=== PATIENT | male | born 1995 | race Caucasian/White ===

== ENCOUNTER 2019-07-30 08:01 | Emergency (ER) | payer OTHER, SELFPAY ==
[2019-07-30 08:05] VITALS: BP 122/82; PULSE 113; RESP 19; TEMP 36.8; O2SAT 96
--- NOTE | 2019-07-30 08:13 | ED_ITS ---
I attest that this documentation has been prepared under the direction and in the presence of Nataly Werner MD. Augusto Blount [email or web address] 07/30/19;08:19 HPI - General Adult General Chief complaint: GI Bleed Stated complaint: vomiting blood Time Seen by Provider: 07/30/19 08:07 Source: patient Mode of arrival: ambulatory Limitations: no limitations History of Present Illness HPI narrative: A 24 y/o male pt presents to the ED with c/o blood in his emesis and stool that began on Tuesday (07/28/2019). Pt states that his Sx began with formed, hematochezia and dark, red, emesis and his symptoms have since worsened. Pt reports that his last emesis was yesterday and was bright red. He also notes that yesterday he felt very fatigued and had a tightness in his upper, middle, abdomen, but that has subsided. He reports having a FRANCO and feeling dehydrated today, but denies any ABD pain, N/V/D, or dysuria. Pt notes having increased fluid intake. last tuesday w bright tight abd pain yesterday threw up dark brown yesterday when turning tire he felt weird all his energy was gone took 4 full liquid vomits very dark bright red stool bright red vomit yesterday very dehydrated with headache today only headache and no abd pain today no n/v/d today drank 7 glasses of water yesterday urinating ok pnemonia in 7th grade no other PMHX tonsillectomy smoke 10-12 cigs a day alcohol use 4 shots through the week started a day after he last drink no pcp tachy but reg lungs clear lung sounds bilateral bowel sounds normal epighastric tenderness no drug use no external hemoroids no internal hemoroids Onset (ago): day(s) (2) Related Data Home Medications Medication Instructions Recorded Confirmed No Home Medications 07/30/19 07/30/19 Allergies Allergy/AdvReac Type Severity Reaction Status Date / Time No Known Allergies Allergy Verified 07/30/19 08:10 COUNT INCLUDES THE [facility] Social History Social History Gender identity (if verbalized by the patient): Male Course Vital Signs Vital signs: Vital Signs Temperature 98.3 F 07/30/19 08:05 Pulse Rate 113 H 07/30/19 08:05 Respiratory Rate 19 20 08:05 Blood Pressure 122/82 07/30/19 08:05 Pulse Oximetry 96 07/30/19 08:05 Temperature 98.3 F 07/30/19 08:05 Pulse Rate 113 H 07/30/19 08:05 Respiratory Rate 07/30/19 08:05 Blood Pressure 122/82 07/30/19 08:05 Pulse Oximetry 96 07/30/19 08:05 Medical Decision Making Vital Signs Vital Signs: Vital Signs Temperature 98.3 F 07/30/19 08:05 Pulse Rate 113 H 07/30/19 08:05 Respiratory Rate 07/30/19 08:05 Blood Pressure 122/82 07/30/19 08:05 Pulse Oximetry 96 07/30/19 08:05 Temperature 98.3 F 07/30/19 08:05 Pulse Rate 113 H 07/30/19 08:05 Respiratory Rate 07/30/19 08:05 Blood Pressure 122/82 07/30/19 08:05 Pulse Oximetry 96 07/30/19 08:05 Discharge Plan Discharge Prescriptions: No Action No Home Medications RF: 0
[2019-07-30] MEDS: LACTATED RINGERS 1,000 ML 999 ML IV CONT (09:05)
[2019-07-30 09:09] VITALS: BP 104/68; BP 110/77; PULSE 103; PULSE 81
[2019-07-30 09:12] VITALS: BP 104/69; PULSE 118
[2019-07-30 09:17] VITALS: BP 104/69; PULSE 92; RESP 20; O2SAT 98
[2019-07-30 09:28] LABS: Basophils Percent Auto 0.5 % (0.2-1.2); Eosinophils Absolute Auto 0.1 K/mm3 (0-0.3); Eosinophils Percent Auto 1.7 % (0-4.4); Hematocrit 47.8 % (42.0-52.0); Hemoglobin 16.4 g/dL (14.0-18.0); Immature Granulocyte Absolute 0.03 K/mm3 (0.00-0.031); Immature Granulocyte Percent A 0.4 % (0-0.5); Lymphocytes Absolute Auto 0.84 K/mm3 (0.9-3.2); Lymphocytes Percent Auto 11.1 % (18.3-44.2); Mean Corpuscular HGB Conc 34.3 g/dl (32-36); Mean Corpuscular Hemoglobin 30.1 pg (26-34); Mean Corpuscular Volume 87.9 fl (80-100); Mean Platelet Volume 11.2 fl (7.4-10.4); Monocytes Absolute Auto 0.6 K/mm3 (0.1-0.6); Monocytes Percent Auto 8.5 % (2.6-8.5); Neutrophils Absolute Auto 5.9 K/mm3 (1.3-6.7); Neutrophils Percent Auto 77.8 % (45.5-73.1); Platelet Count Result 175 k/mm3 (150-375); Red Blood Count 5.44 M/mm3 (4.6-6.20); Red Cell Distribution Width 12.2 % (11.5-14.5); White Blood Count 7.5 K/mm3 (4.5-10.0)
--- NOTE | 2019-07-30 09:28 | ED.GIBLEED ---
HPI - GI Bleed General Chief complaint: GI Bleed Stated complaint: vomiting blood Time Seen by Provider: 07/30/19 08:07 Source: patient Mode of arrival: ambulatory Limitations: no limitations History of Present Illness HPI Narrative: A 24 y/o male pt presents to the ED, with c/o blood in his emesis and stool that began on Tuesday (07/28/2019), one day after his last alcohol intake. Pt states that his Sx began with formed, hematochezia and dark, red, emesis and his symptoms have since worsened. Pt reports that his last emesis was yesterday and describes it as being bright red. He also notes that yesterday he felt very fatigued and had a tightness in his upper, middle, abdomen, but that has subsided. He reports having a FRANCO and feeling dehydrated today, but denies currently having any ABD pain, N/V/D, or dysuria. Pt notes having increased fluid intake and has been able to keep this down. MD complaint: blood streaked emesis, coffee ground emesis and blood streaked stool Onset (ago): day(s) (2) Associated symptoms: abdominal pain (middle, upper, tightness ), vomiting, headaches and other (diarrhea, fatigue) Treatments Prior to Arrival: none Related Data Home Medications Medication Instructions Recorded Confirmed No Home Medications 07/30/19 07/30/19 Allergies Allergy/AdvReac Type Severity Reaction Status Date / Time No Known Allergies Allergy Verified 07/30/19 08:10 Review of Systems Review of Systems: All systems reviewed & are unremarkable except as noted in HPI and below Constitutional: Constitutional: Reports fatigue and Reports headache(s) Gastrointestinal: Gastrointestinal: Reports abdominal pain (middle, upper tightness ), Reports hematochezia, Reports diarrhea, Denies nausea, Reports vomiting and Reports hematemesis (bright and dark red) Genitourinary: Genitourinary: Denies dysuria [facility] Past Medical History Medical History (Updated 07/30/19 @ 10:55 by Nataly Werner MD) Pneumonia Surgical History Surgical History (Updated 07/30/19 @ 09:39 by DON Fulton) History of tonsillectomy Social History Social History (Updated 07/30/19 @ 10:33 by DON Fulton) Smoking status: Current every day smoker Tobacco type: cigarettes Additional smoking assessment comments: 10 to 12 cigarettes per day. Alcohol intake: current Drinks per week: 5 Gender identity (if verbalized by the patient): Male Comments Pt does not currently have a PCP. Pt denies SHx of drug use. Exam Const: General: cooperative, no acute distress and alert Nutritional Appearance: well nourished Orientation/consciousness: patient oriented x3 Limitations: no limitations HENMT: Mouth: Yes lip normal and Yes moist mucous membranes Resp: Effort & Inspection: normal respiratory effort Auscultation: clear to auscultation bilaterally Cardio: Rate: tachycardic Rhythm: regular rhythm GI: GI Palp: Yes Soft to palpation and Yes Tenderness to palpation present (GI) (epigastric) Auscultation: normal bowel sounds Rectal Exam: No External hemorrhoid(s) present, No Internal hemorrhoid(s) present and heme negative stool Skin: General skin exam: normal color Neuro: General: patient oriented x3 Cognition (Neuro): normal cognition Speech: normal speech Extrem: General: normal to inspection, full ROM and no clubbing, cyanosis or edema Psych: Mental Status: mental status grossly normal Affect: normal affect Attitude: cooperative Course Course Emergency Course: Heart rate improved with IV fluids. Patient feeling better. Labs unremarkable. Patient likely with perirectal irritation from bowel movement as no evidence of hemorrhoidal disease with heme-negative stool and normal hemoglobin. Counseled on primary care follow-up. Vital Signs Vital signs: Vital Signs Temperature 98.3 F 07/30/19 08:05 Pulse Rate 113 H 07/30/19 08:05 Respiratory Rate 19 07/30/19 08:05 Blood Pressure 122/82 07/30/19 08:05
[2019-07-30 09:34] LABS: Add Urine Microscopic? YES; Appearance Urine Clear (Clear); Bilirubin Urine Negative (Negative); Blood Urine Negative (Negative); Color Urine Yellow (Yellow); Glucose Urine UA Negative (Negative); Ketones Urine 1+ mg/dL (Negative); Leukocyte Esterase Ur Negative LEU/UL (Negative); Mucus Urine Heavy /lpf; Nitrate Urine Negative (Negative); Protein Urine 1+ mg/dL (Negative); RBC Urine 0-2 /hpf (0-2); Squamous Epithelial Cell Urine Rare /hpf (Few); WBC Urine 0-3 /hpf
[2019-07-30 09:37] LABS: Specific Grav Ur 1.036 (1.001-1.035)
[2019-07-30 09:38] LABS: INR 0.9; Prothrombin Time 12.2 Seconds (11.1-14.7)
[2019-07-30 09:39] LABS: Partial Thromboplastin Time 31.9 SECONDS (22.3-36.8)
[2019-07-30 09:40] LABS: Lipase 37 U/L (23-300)
[2019-07-30 09:41] LABS: Alanine Aminotransferase 13 U/L (4-50); Albumin Level 4.8 g/dL (3.5-5.1); Alkaline Phosphatase 67 U/L (38-126); Aspartate Amino Transferase 23 U/L (17-59); Bilirubin,Total 0.8 mg/dL (0.2-1.3); Blood Urea Nitrogen 15 mg/dL (9-20); Calcium 9.3 mg/dL (8.4-10.2); Carbon Dioxide 25 mmol/L (22-30); Chloride 96 mmol/L (98-107); Estimated CRCL calculation 124 ml/min; Estimated Glomerular Filt Rate > 60; Glucose 96 mg/dL (75-110); Potassium 3.6 mmol/L (3.4-5.0); Sodium 136 mmol/L (137-145)
[2019-07-30 10:34] VITALS: BP 107/74; PULSE 75; RESP 14; O2SAT 97
[2019-07-30 11:08] VITALS: BP 108/74; PULSE 98; RESP 14; O2SAT 97
== END 2019-07-30 11:09 | disposition home or self-care (01) ==
PROVIDERS: Emergency Provider Emergency Medicine
DX: K92.1 Melena (principal)
CPT/HCPCS: 36415; 80053; 81001; 83690; 85025; 85610; 85730; 96360; 96361; 99283; J7120